=== PATIENT | female | born 1995 | race Caucasian/White ===

== ENCOUNTER 2019-04-21 18:25 | Emergency (ER) | payer SELFPAY ==
[~2019-04-21] VITALS: Ht 157.5 cm; Wt 80.2 kg
[2019-04-21 19:01] VITALS: BP 126/64
== END 2019-04-21 21:02 | disposition home or self-care (01) ==
LOC: ER 20:06
DX: G51.0 Bell's palsy (principal)
CPT/HCPCS: 82962; 99283